=== PATIENT | female | born 1970 | race Caucasian/White ===

== ENCOUNTER 2018-08-13 00:41 | Emergency (ER) | payer OTHER ==
[~2018-08-13] VITALS: Ht 152.4 cm; Wt 47.6 kg
[2018-08-13] MEDS ORDERED: DICYCLOMINE HCL LIQ 10 MG/5 ML UDC PO ONE (01:00)
[2018-08-13] MEDS ORDERED: MAG HYDROX/AL HYDROX/SIMETH 30 ML LIQUID UDC PO ONE (01:00)
[2018-08-13] MEDS ORDERED: MAG HYDROX/AL HYDROX/SIMETH 30 ML LIQUID UDC ONE ×2 (01:01→01:02)
[2018-08-13] MEDS ORDERED: DICYCLOMINE HCL LIQ 10 MG/5 ML UDC ONE (01:02)
--- NOTE | 2018-08-13 01:12 | NUR ---
PATIENT STATING " I FEEL BETTER NOW."
--- NOTE | 2018-08-13 01:14 | NUR ---
DR TURCIOS INTO RE EVAL PATIENT
--- NOTE | 2018-08-13 01:16 | NUR ---
Patient discharged to home in stable conditon WITH TAKING PATIENT HOME. Written and verbal after care instructions given. Patient verbalizes understanding of instructions. WALKED OUT OF ER WITH NO DISTRESS NOTED
[2018-08-13 01:17] VITALS: BP 105/50
== END 2018-08-13 01:19 | disposition home or self-care (01) ==
LOC: ER 00:43
DX: K29.70 Gastritis, unspecified, without bleeding (principal)
CPT/HCPCS: A4663